=== PATIENT | male | born 1940 | race Caucasian/White ===

== ENCOUNTER 2021-11-21 11:23 | Inpatient (IN) | payer MEDICARE, OTHER, SELFPAY ==
--- NOTE | ~2021-11-21 | US_ITS ---
US renal BI 11/22/2021 09:04 Procedure: Realtime transabdominal ultrasound of the kidneys and bladder. Indication: Elevated liver enzymes Comparison: No prior studies for comparison. Findings: Renal echotexture is normal bilaterally without hydronephrosis, contour deforming mass or r enal calculus. There are bilateral renal cysts, largest in the right kidney measuring 1.8 cm. The rig ht kidney measures 1.8 cm and left kidney measures 1.2 cm. Bladder within normal limits. Impression: 1: Bilateral renal cysts. Reviewed, dictated and finalized at location A. UTER PROGRAMMER CHIEF Impression: 1: Bilateral renal cysts.
--- NOTE | ~2021-11-21 | US_ITS ---
US abdomen limited INDICATION: Elevated liver enzymes. PROCEDURE: Realtime right upper abdominal ultrasound. COMPARISON: No prior studies for comparison. FINDINGS: The pancreas is normal without focal mass or pancreatic ductal dilation. There is a 2 cm l iver cyst. Otherwise, liver echotexture is unremarkable. There is normal directional flow in the por echo vein. There are gallstones. No gallbladder wall thickening or pericholecystic fluid. Common bile duct ruthann ures 4 mm. No sonographic Walsh's sign. IMPRESSION: 1: Cholelithiasis. Reviewed, dictated and finalized at location A. AGE REPORTER IMPRESSION: 1: Cholelithiasis.
--- NOTE | ~2021-11-21 | CT_ITS ---
EXAMINATION: CT brain wo con DATE: 11/21/2021 12:57 INDICATION: Altered mental status TECHNIQUE: Computed tomography (CT) of the head was performed without intravenous contrast. The dose- length product was 681.00 mGy-cm. Automated exposure control and iterative reconstruction technique w ere employed. COMPARISON: None FINDINGS: Generalized atrophy. There are scattered mild periventricular and subcortical white matter changes, most likely related to small vessel ischemic disease (microangiopathy). There is a sellar ma ss measuring approximately 2 x 1.7 cm which may be represent a pituitary macroadenoma or craniopharyn gioma. There is intracranial atherosclerosis. No acute intracranial abnormality. No acute infarction or hemorrhage. Paranasal sinuses and mastoids are pneumatized. There are surgical changes of the orbi ts. Mild mucosal thickening of the maxillary sinuses. IMPRESSION: 1. No acute intracranial abnormality. 2: Pituitary sellar mass, suspicious for macroadenoma or craniopharyngioma. Consider correlation with MRI. 3: Chronic age-related findings. Reviewed, dictated and finalized at location A. MING PRESS OPERATOR IMPRESSION: 1. No acute intracranial abnormality. 2: Pituitary sellar mass, suspicious for macroadenoma or craniopharyngioma. Con auto club travel counselor correlation with MRI. 3: Chronic age-related findings.
[2021-11-21 11:28] VITALS: PULSE 61; RESP 17; TEMP 37.1; O2SAT 93
--- NOTE | 2021-11-21 11:36 | ECG_ITS ---
Measurements Intervals [place] Rate: 52 P: -14 TX: 174 QRS: 23 QRSD: 101 T: 37 QT: 453 QTc: 422 Interpretive Statements SINUS BRADYCARDIA EARLY PRECORDIAL R/S TRANSITION BASELINE ARTIFACT- I, II, III, AVR, AVL, AVF, V2-V6 BORDERLINE ECG Electronically Signed On 11-21-2021 14:14:50 [employer]RIGATOR SPRINKLING SYSTEM by Pedrito Rodriguez D.O.
[2021-11-21 11:55] LABS: Base Excess ABG -3.2 mEq/l (+/-2.0); Carboxyhemoglobin 0.4 % THb (0-2.0); Fractional Inspired Oxygen 36 %; HCO3 ABG 21.2 mEq/l (22.0-26.0); Methemoglobin ABG 0.1 %THb (0-1.5); Oxygen Content ABG 20.2 %vol (16.0-22.0); Oxygen Saturation ABG 99.8 % (95.0-100.0); Oxyhemoglobin 98.7 % THb (90.0-100.0); PCO2 ABG 36.3 mmHg (35.0-45.0); PO2 ABG 354.9 mmHg (80.0-100.0); Reduced Hemoglobin 0.8 %THb (0-5.0); Total Hemoglobin 13.9 g/dL (12.0-18.0); pH ABG 7.385 (7.350-7.450)
[2021-11-21 11:56] LABS: Device NASAL CANNULA; Modified Allen's Test Pass; Site Drawn RIGHT RADIAL
[2021-11-21 12:27] LABS: Add Urine Microscopic? YES; Appearance Urine Cloudy (Clear); Bacteria Urine Trace /hpf; Bilirubin Urine Negative (Negative); Blood Urine 1+ (Negative); Calcium Oxalate Crystals Urine Present /hpf; Color Urine Amber (Yellow); Glucose Urine UA Negative (Negative); Hyaline Casts Urine 30-49 /lpf; Ketones Urine Negative (Negative); Leukocyte Esterase Ur 3+ LEU/UL (Negative); Mucus Urine Few /lpf; Nitrate Urine Negative (Negative); Protein Urine 2+ mg/dL (Negative); RBC Urine 21-50 /hpf (0-2); Squamous Epithelial Cell Urine Few /hpf (Few); Urobilinogen Urine Negative mg/dL (<2.0); WBC Clumps Urine Present /HPF; WBC Urine >75 /hpf
[2021-11-21 12:35] LABS: Basophils Absolute Auto 0.1 K/mm3 (0.0-0.1); Basophils Percent Auto 0.4 % (0.2-1.2); Eosinophils Percent Auto 0.3 % (0-4.4); Hematocrit 39.5 % (42.0-52.0); Hemoglobin 12.1 g/dL (14.0-18.0); Immature Granulocyte Absolute 0.07 K/mm3 (0.00-0.031); Immature Granulocyte Percent A 0.6 % (0-0.5); Lymphocytes Percent Auto 11.1 % (18.3-44.2); Mean Corpuscular HGB Conc 30.6 g/dl (32-36); Mean Corpuscular Volume 107.6 fl (80-100); Mean Platelet Volume 11.3 fl (7.4-10.4); Monocytes Absolute Auto 1.6 K/mm3 (0.1-0.6); Neutrophils Absolute Auto 8.6 K/mm3 (1.3-6.7); Neutrophils Percent Auto 73.6 % (45.5-73.1); Platelet Count Result 249 k/mm3 (150-375); Red Blood Count 3.67 M/mm3 (4.6-6.20); Red Cell Distribution Width 12.7 % (11.5-14.5); White Blood Count 11.7 K/mm3 (4.5-10.0)
[2021-11-21 12:43] LABS: INR 1.2
[2021-11-21 12:44] LABS: Alanine Aminotransferase 80 U/L (4-50); Albumin Level 3.2 g/dL (3.5-5.1); Alkaline Phosphatase 144 U/L (38-126); Anion Gap 9 mmol/L (8-16); Aspartate Amino Transferase 70 U/L (17-59); Bilirubin,Total 0.6 mg/dL (0.2-1.3); Blood Urea Nitrogen 103 mg/dL (9-20); Calcium 9.5 mg/dL (8.4-10.2); Carbon Dioxide 28 mmol/L (22-30); Chloride 122 mmol/L (98-107); Estimated CRCL calculation 16 ml/min; Estimated Glomerular Filt Rate 19; Glucose 126 mg/dL (65-110); Partial Thromboplastin Time 28.6 SECONDS (22.3-36.8); Potassium 4.3 mmol/L (3.4-5.0); Sodium 159 mmol/L (137-145)
--- NOTE | 2021-11-21 12:51 | ED.GENADULT ---
HPI - General Adult General Chief complaint: Altered Mental Status Stated complaint: ams, low sp02 Time Seen by Provider: 11/21/21 12:26 Source: family and EMS Mode of arrival: EMS Limitations: dementia History of Present Illness HPI narrative: Patient is a 81-year-old male brought in from senior living due to low blood pressure and low oxygen saturation according to EMS. Daughter is at bedside who is power of assistant prosecuting attorney, states that the senior living called her and states that they are sending her dad to the emergency room due to his blood pressure being low. Patient is alert and oriented x1 which is his baseline according to daughter. Patient has progressive dementia and over the past 3 weeks has gotten worse per daughter. Patient was recently admitted at another hospital for the same complaint. Related Data Allergies Allergy/AdvReac Type Severity Reaction Status Date / Time No Known Allergies Allergy Verified 11/21/21 11:45 Review of Systems Review of Systems: ROS unobtainable: Yes other (Dementia) PMFSH Comments Past medical history: Dementia Family history: Unknown Social history: Lives at a senior living, unknown if patient ever smoked Exam Const: General: cooperative, healthy appearing, comfortable, no acute distress, well developed, alert and awake; No confusion Orientation/consciousness: oriented to person, oriented to place, oriented to time, patient oriented x3 and No confusion Limitations: other limitations (Dementia) Other: Somnolent but easily arousable to voice, frail HENMT: Head: normal to inspection Ears: hearing grossly normal bilaterally, TM normal on the right and TM normal on the left General nose exam: Normal external nose present, Normal nares present and No nasal discharge present Face and sinus: normal facial exam Mouth: Yes Normal oral and palatal mucosa present, Yes lip normal, Yes tongue normal and Yes oropharynx normal Throat: posterior oropharynx normal, tonsils normal and uvula midline Eyes: General: appearance normal, both eyes and all related structures Pupils: Equal, round and reactive pupils present EOM: EOMs intact bilaterally Neck: Neck: normal visual inspection and no lymphadenopathy Resp: Effort & Inspection: normal respiratory effort, able to speak in complete sentences, no respiratory distress and not tachypneic Auscultation: clear to auscultation bilaterally, no crackles, no rales, no rhonchi and no wheezes Cardio: Rate: regular rate Rhythm: regular rhythm GI: Inspection: normal to inspection GI Palp: No abdominal tenderness, Yes Soft to palpation, No Tenderness to palpation present (GI), No Guarding due to palpation present (GI), No Rigid due to palpation and No Rebound tenderness present Auscultation: normal bowel sounds Skin: General skin exam: normal color, no rashes or lesions noted, elasticity normal and turgor normal Neuro: General: oriented to person, tone normal, moves all extremities, Normal light touch and pain sensation, no meningeal signs and no focal motor deficits Cranial nerves: Yes Equal, round and reactive pupils present Speech: No Abnormal speech present Sensory Exam: No Sensory deficit (Neuro) Extrem: General: normal to inspection, full ROM and capillary refill normal Psych: Appearance: grossly normal and well kempt Attitude: cooperative Judgement: Good judgement present (Psych) Course Vital Signs Vital signs: Vital Signs Temperature 37.1 C 11/21/21 11:28 Pulse Rate 61 11/21/21 11:28 Respiratory Rate 17 11/21/21 11:28 Pulse Oximetry 93 11/21/21 11:28 Temperature 37.1 C 11/21/21 11:28 Pulse Rate 61 11/21/21 11:28 Respiratory Rate 17 11/21/21 11:28 Pulse Oximetry 93 11/21/21 11:28 Medical Decision Making MDM Narrative Medical decision making narrative: Patient has a living will according to daughter and he is a DNR. Daughter is also healthcare power of assistant prosecuting attorney. Vital Signs Vital Signs: Vital Signs Tempera
[2021-11-21 13:19] LABS: Troponin I 0.029 ng/mL (0.000-0.034)
[2021-11-21] MEDS: SODIUM CHLORIDE 0.9% IV 1,000 ML 999 ML IV CONT (15:42)
[2021-11-21] MEDS: SODIUM CHLORIDE 0.9% IV 1,000 ML 200 ML IV CONT (15:43)
[2021-11-21 15:48] VITALS: BP 122/54; PULSE 50; RESP 16; O2SAT 100
[2021-11-21] MEDS: LACTATED RINGERS 1,000 ML 100 ML IV CONT (15:48)
[2021-11-21 17:50] VITALS: BP 127/77; PULSE 54; RESP 18; O2SAT 100
[2021-11-21 17:55] VITALS: O2SAT 100
--- NOTE | 2021-11-21 18:01 | PM.IMHP ---
H&P: HPI History of Present Illness Date/Time: 11/21/21 18:01 this is a 81-year-old male patient who has a history of dementia. He is from [facility]. The patient was not able to give me any information so I had to call his daughter and obtained information. The patient was brought to the hospital due to low blood pressure and low oxygen saturation according to EMS. The daughter initially was at the bedside and then left and went home by time I saw the patient. I did call the daughter when she went home for further information. The patient has progressively gotten worse with his dementia over the last 3 weeks. The patient was recently discharged from another hospital. White count is 11.7. H&H is 11.1 and 39.5. Sodium level is 159. Chloride 122. BUN 103 and creatinine 3.2. According to the daughter the patient has never had any kidney dysfunction. Glucose 126 and GFR is 19. AST 70 ALT is 80. Albumin is 3.2 and protein is 6.0. The patient was also found have a UTI. According to the daughter the patient used to drink heavily prior to his last hospitalization. She stated that the patient drink up to 6 beers a day. She stated that he has not drink for approximately 3-4 weeks. The patient was given IV fluids and Rocephin in the emergency room. The patient is being admitted to observation status on the date of service of 11/21/2021. Chief Complaint: Confusion Review of Systems Review of Systems: ROS unobtainable: Yes unobtainable due to mental status PMFSH Past Medical History Medical History (Updated 11/21/21 @ 20:44 by Kaleigh Bee NP) Dementia Glaucoma Hyperlipidemia Hypertension Surgical History Surgical History (Updated 11/21/21 @ 20:43 by Kaleigh Bee NP) H/O eye surgery Family History Family History (Updated 11/21/21 @ 20:45 by Kaleigh Bee NP) Mother Diabetes mellitus Father Lung cancer Social History Social History (Updated 11/21/21 @ 20:55 by Kaleigh Bee NP) Social History: The patient has 2 children. Prior to his last hospitalization approximately a month ago the patient was drinking anywhere from 4-6 beers a day according to his daughter. The patient is an ex smoker. The patient is a . The patient is retired from a warehouse. His daughter Mimi is the durable power trial attorney for healthcare. Code status DNR Alcohol intake: unknown Substance use: unknown Spiritual care concerns: No Meds Home Medications and Allergies Home Medications Medication Instructions Recorded Confirmed Type atorvastatin 40 mg PO DAILY 11/21/21 11/21/21 History brimonidine [Alphagan P] 2 drp EACH EYE BID 11/21/21 11/21/21 History bupropion HCl 150 mg PO DAILY 11/21/21 11/21/21 History donepezil 5 mg PO HS 11/21/21 11/21/21 History dorzolamide-timolol 2 drp EACH EYE BID 11/21/21 11/21/21 History folic acid 1 mg PO DAILY 11/21/21 11/21/21 History netarsudil [Rhopressa] 2 drp EACH EYE HS 11/21/21 11/21/21 History pregabalin 50 mg PO BID 11/21/21 11/21/21 History sertraline 50 mg DAILY 11/21/21 11/21/21 History Allergies Allergy/AdvReac Type Severity Reaction Status Date / Time No Known Allergies Allergy Verified 11/21/21 11:45 Vital Signs Vital Signs - 24 hr 11/21/21 11:28 11/21/21 15:48 11/21/21 17:50 Temperature 37.1 C Pulse Rate 61 50 L 54 L Respiratory Rate 17 16 18 Blood Pressure 122/54 L 127/77 Pulse Oximetry 93 100 100 11/21/21 17:55 Temperature Pulse Rate Respiratory Rate Blood Pressure Pulse Oximetry 100 Exam Const: General: cooperative, comfortable, no acute distress, well developed, alert, awake and tired appearing Nutritional Appearance: thin Orientation/consciousness: oriented to person Limitations: no limitations HENMT: Head: normal to inspection, No palpable skull fracture present, normocephalic and atraumatic Ears: hearing grossly normal bilaterally General nose exam: Normal external nose pres
[2021-11-21 18:35] VITALS: BP 139/98; PULSE 81; RESP 18; O2SAT 100
[2021-11-21 21:44] LABS: Anion Gap 6 mmol/L (8-16); Blood Urea Nitrogen 99 mg/dL (9-20); Calcium 9.1 mg/dL (8.4-10.2); Carbon Dioxide 23 mmol/L (22-30); Chloride 128 mmol/L (98-107); Estimated CRCL calculation 22 ml/min; Estimated Glomerular Filt Rate 26; Glucose 105 mg/dL (65-110); Potassium 4.1 mmol/L (3.4-5.0); Sodium 157 mmol/L (137-145)
[2021-11-21 22:00] VITALS: BP 150/65; PULSE 55; RESP 16; TEMP 35.3; O2SAT 100
[2021-11-21] MEDS: LORazepam INJ (*CRX) 2 MG/ML VIAL 0.5 MG IV PUSH (23:40)
[2021-11-22] VITALS (19 sets, daily range): BP systolic 96–126; BP diastolic 51–73; PULSE 56–80; RESP 12–16; TEMP 31.4–37.1; O2SAT 96–97
[2021-11-22 06:47] LABS: Basophils Percent Auto 0.4 % (0.2-1.2); Eosinophils Percent Auto 0.2 % (0-4.4); Hematocrit 40.8 % (42.0-52.0); Hemoglobin 12.2 g/dL (14.0-18.0); Immature Granulocyte Absolute 0.05 K/mm3 (0.00-0.031); Immature Granulocyte Percent A 0.5 % (0-0.5); Lymphocytes Absolute Auto 1.01 K/mm3 (0.9-3.2); Lymphocytes Percent Auto 9.9 % (18.3-44.2); Mean Corpuscular HGB Conc 29.9 g/dl (32-36); Mean Corpuscular Hemoglobin 32.8 pg (26-34); Mean Corpuscular Volume 109.7 fl (80-100); Mean Platelet Volume 11.8 fl (7.4-10.4); Monocytes Percent Auto 9.9 % (2.6-8.5); Neutrophils Absolute Auto 8.1 K/mm3 (1.3-6.7); Neutrophils Percent Auto 79.1 % (45.5-73.1); Platelet Count Result 205 k/mm3 (150-375); Red Blood Count 3.72 M/mm3 (4.6-6.20); Red Cell Distribution Width 12.7 % (11.5-14.5); White Blood Count 10.2 K/mm3 (4.5-10.0)
[2021-11-22 07:06] LABS: Lactic Acid Reflex 0.6 mmol/L (0.7-2.1)
[2021-11-22 07:18] LABS: Alanine Aminotransferase 77 U/L (4-50); Albumin Level 3.2 g/dL (3.5-5.1); Alkaline Phosphatase 154 U/L (38-126); Anion Gap 9 mmol/L (8-16); Aspartate Amino Transferase 61 U/L (17-59); Bilirubin,Total 0.4 mg/dL (0.2-1.3); Blood Urea Nitrogen 90 mg/dL (9-20); Calcium 9.4 mg/dL (8.4-10.2); Carbon Dioxide 24 mmol/L (22-30); Chloride 128 mmol/L (98-107); Estimated CRCL calculation 26 ml/min; Estimated Glomerular Filt Rate 32; Glucose 109 mg/dL (65-110); Lactate Dehydrogenase 508 U/L (313-618); Magnesium 3.1 mg/dL (1.6-2.3); Potassium 4.3 mmol/L (3.4-5.0); Sodium 161 mmol/L (137-145)
[2021-11-22 07:49] LABS: Hepatitis B Surface Antigen Negative (Negative)
[2021-11-22 07:55] LABS: HAV RESULT Negative (Negative); Hepatitis B Core IgM Result Negative (Negative)
[2021-11-22 08:05] LABS: Burr Cells 2+ (NORMAL); Platelet Estimate Adequate (Adequate)
[2021-11-22 08:06] LABS: Hepatitis C Virus Antibody Negative (Negative)
[2021-11-22] MEDS: DEXTROSE 5%/0.45% SOD CHL 1,000 ML 125 ML IV CONT ×3 (08:47→23:39)
[2021-11-22] MEDS: FOLIC ACID 1 MG TABLET PO (08:48)
[2021-11-22] MEDS: SERTRALINE HCL 50 MG TABLET BY MOUTH (08:48)
[2021-11-22] MEDS: PREGABALIN (*CRX) 50 MG CAPSULE PO (08:48)
[2021-11-22] MEDS: DORZOLAMIDE/TIMOLOL OPHTH SOL 10 ML BOTTLE 2 DROP EACH EYE ×2 (08:49→21:08)
[2021-11-22] MEDS: BRIMONIDINE TARTRATE 0.1% 5 ML OPHTH DROPS 2 DROP EACH EYE ×2 (08:49→21:07)
[2021-11-22 08:51] LABS: Thyroid Stimulating Hormone Reflex 0.971 uIU/mL (0.465-4.68)
[2021-11-22 12:21] LABS: Immature Reticulocyte Fraction 8.1 % (3.0-15.9); Reticulocyte Percent 1.09 % (0.7-4.3); Reticulocytes Absolute 0.03 B/L (32.2-175.7)
[2021-11-22 12:40] LABS: Anion Gap 6 mmol/L (8-16); Blood Urea Nitrogen 89 mg/dL (9-20); Calcium 8.7 mg/dL (8.4-10.2); Carbon Dioxide 24 mmol/L (22-30); Chloride 129 mmol/L (98-107); Estimated CRCL calculation 29 ml/min; Estimated Glomerular Filt Rate 37; Glucose 143 mg/dL (65-110); Sodium 159 mmol/L (137-145)
[2021-11-22 12:51] LABS: Iron 39 ug/dL (49-181)
--- NOTE | 2021-11-22 12:56 | PM.IMPN ---
Progress Note: A&P Assessment and Plan (1) Altered mental status: Qualifiers: Altered mental status type: unspecified Qualified Code(s): R41.82 - Altered mental status, unspecified Code(s): R41.82 - Altered mental status, unspecified Status: Acute Assessment and Plan: He has dementia of unknown etiology at baseline Altered mental status is likely due to metabolic encephalopathy due to hypernatremia and dehydration CT brain without acute findings Monitor as his sodium is slowly corrected (2) Acute hypernatremia: Code(s): E87.0 - Hyperosmolality and hypernatremia Status: Acute Assessment and Plan: Most likely due to decreased thirst as well as decreased free water losses caused by PO urea therapy Calculated free free water deficit is approximately 5 L (3) Hypothermia: Qualifiers: Encounter type: initial encounter Qualified Code(s): T68.XXXA - Hypothermia, initial encounter Code(s): T68.XXXA - Hypothermia, initial encounter Status: Acute Assessment and Plan: Likely related to his metabolic encephalopathy and decreased level of activity Obtain TSH and cortisol Warming blanket (4) Acute renal failure: Qualifiers: Acute renal failure type: unspecified Qualified Code(s): N17.9 - Acute kidney failure, unspecified Code(s): N17.9 - Acute kidney failure, unspecified Status: Acute Assessment and Plan: Baseline creatinine unknown Likely due to dehydration Renal ultrasound with bilateral cyst, largest 1.2 and 1.8 cm, and no hydronephrosis (5) UTI (urinary tract infection): Qualifiers: Urinary tract infection type: site unspecified Hematuria presence: without hematuria Qualified Code(s): N39.0 - Urinary tract infection, site not specified Code(s): N39.0 - Urinary tract infection, site not specified Status: Acute Assessment and Plan: Urinary tract infection clinically unlikely Ceftriaxone initiated 11/21 Discontinue if urine cultures negative (6) Elevated liver enzymes: Code(s): R74.8 - Abnormal levels of other serum enzymes Status: Acute Assessment and Plan: Prior history of alcohol and atorvastatin use Viral hepatitis panel negative Abdominal ultrasound with cholelithiasis lithiasis and no hepatic abnormality Follow-up with hydration and warming (7) Glaucoma: Qualifiers: Glaucoma type: unspecified Laterality: unspecified laterality Qualified Code(s): H40.9 - Unspecified glaucoma Code(s): H40.9 - Unspecified glaucoma Status: Chronic Assessment and Plan: Continue with home eye drops. 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 Was less agitated at [facility]. Found to be hypernatremic. Was on urea presumably to treat hyponatremia. 11/22: Noted to be hypothermic today. Warming
[2021-11-22 13:01] LABS: Percent Iron Saturation 20 % (20-50)
[2021-11-22 13:23] LABS: Thyroid Stimulating Hormone Reflex 0.725 uIU/mL (0.465-4.68)
[2021-11-22 13:53] LABS: Folic Acid > 20.0 ng/mL (2.76->20); Vitamin B12 > 1000.0 pg/mL (239-931)
[2021-11-22 16:58] LABS: Urine Cotinine NEGATIVE
[2021-11-22 16:59] LABS: Sodium Urine Random 28 meq/L
[2021-11-22 17:07] LABS: Eosinophil Urine None Seen % (None Seen)
[2021-11-22 17:10] LABS: Total Protein Urine Random 17 mg/dL
[2021-11-22] MEDS: DONEPEZIL HCL 5 MG TABLET PO (21:08)
[2021-11-22] MEDS: LATANOPROST 0.005% OP SOLN 2.5 ML BTL 1 DROP EACH EYE (21:08)
[2021-11-23 06:00] VITALS: BP 111/47; PULSE 45; RESP 20; TEMP 36.4; O2SAT 100
[2021-11-23 06:06] LABS: Hematocrit 32.5 % (42.0-52.0); Hemoglobin 9.7 g/dL (14.0-18.0); Mean Corpuscular HGB Conc 29.8 g/dl (32-36); Mean Corpuscular Hemoglobin 32.3 pg (26-34); Mean Corpuscular Volume 108.3 fl (80-100); Mean Platelet Volume 12.2 fl (7.4-10.4); Platelet Count Result 188 k/mm3 (150-375); Red Cell Distribution Width 12.7 % (11.5-14.5); White Blood Count 9.4 K/mm3 (4.5-10.0)
[2021-11-23 06:29] LABS: Alanine Aminotransferase 47 U/L (4-50); Albumin Level 2.5 g/dL (3.5-5.1); Alkaline Phosphatase 115 U/L (38-126); Anion Gap 7 mmol/L (8-16); Aspartate Amino Transferase 36 U/L (17-59); Bilirubin,Total 0.3 mg/dL (0.2-1.3); Blood Urea Nitrogen 69 mg/dL (9-20); Calcium 8.8 mg/dL (8.4-10.2); Carbon Dioxide 21 mmol/L (22-30); Chloride 129 mmol/L (98-107); Estimated CRCL calculation 36 ml/min; Estimated Glomerular Filt Rate 49; Glucose 117 mg/dL (65-110); Phosphorus 3.7 mg/dL (2.5-4.5); Potassium 3.5 mmol/L (3.4-5.0); Sodium 157 mmol/L (137-145)
[2021-11-23] MEDS: ATORVASTATIN 40 MG TABLET PO (09:18)
[2021-11-23] MEDS: THIAMINE HCL 50 MG TABLET BY MOUTH (09:18)
[2021-11-23] MEDS: FOLIC ACID 1 MG TABLET PO (09:18)
[2021-11-23] MEDS: SERTRALINE HCL 50 MG TABLET BY MOUTH (09:18)
[2021-11-23] MEDS: buPROPion HCL XL (24 HR) 150 MG TABCR PO (09:18)
[2021-11-23] MEDS: PREGABALIN (*CRX) 50 MG CAPSULE PO (09:18)
[2021-11-23] MEDS: DORZOLAMIDE/TIMOLOL OPHTH SOL 10 ML BOTTLE 2 DROP EACH EYE ×2 (09:20→20:41)
[2021-11-23] MEDS: BRIMONIDINE TARTRATE 0.1% 5 ML OPHTH DROPS 2 DROP EACH EYE ×2 (09:21→20:42)
[2021-11-23] MEDS: DEXTROSE 5%/0.45% SOD CHL 1,000 ML 125 ML IV CONT (09:23)
[2021-11-23 12:40] LABS: Sodium 154 mmol/L (137-145)
[2021-11-23 13:05] VITALS: BP 98/62; PULSE 84; RESP 16; TEMP 34.3; O2SAT 95
[2021-11-23 13:20] VITALS: BP 98/53; PULSE 52; RESP 16; TEMP 33.6; O2SAT 97
[2021-11-23 14:51] VITALS: BMI 21.2
--- NOTE | 2021-11-23 15:27 | PM.IMPN ---
Progress Note: A&P Assessment and Plan (1) Altered mental status: Qualifiers: Altered mental status type: unspecified Qualified Code(s): R41.82 - Altered mental status, unspecified Code(s): R41.82 - Altered mental status, unspecified Status: Acute Assessment and Plan: Altered mental status is likely due to metabolic encephalopathy due to hypernatremia and dehydration CT brain without acute findings Monitor as his sodium is slowly corrected Given patient's progressive decline, family has requested to proceed with hospice care in alignment with the patients wishes as a DNR. Care coordination informed and referral has been placed. Plannin for family meeting today with plans for hopeful discharge home with hospice tomorrow. (2) Acute hypernatremia: Code(s): E87.0 - Hyperosmolality and hypernatremia Status: Acute Assessment and Plan: Most likely due to decreased thirst as well as decreased free water losses caused by PO urea therapy Calculated free free water deficit is approximately 5 L Continue gentle IV fluids D5/0.45NS. Decrease to 75 ml/hr Sodium improved to 154 today. Recheck this evening to ensure appropriate rate of correction. (3) Hypothermia: Qualifiers: Encounter type: initial encounter Qualified Code(s): T68.XXXA - Hypothermia, initial encounter Code(s): T68.XXXA - Hypothermia, initial encounter Status: Acute Assessment and Plan: Likely related to his metabolic encephalopathy and decreased level of activity TSH and cortisol within normal limits Continue Jes hugger Monitor rectal temp (4) Acute renal failure: Qualifiers: Acute renal failure type: unspecified Qualified Code(s): N17.9 - Acute kidney failure, unspecified Code(s): N17.9 - Acute kidney failure, unspecified Status: Acute Assessment and Plan: Baseline creatinine unknown Likely due to dehydration Renal ultrasound with bilateral cyst, largest 1.2 and 1.8 cm, and no hydronephrosis Creatinine improved to 1.4 today (5) UTI (urinary tract infection): Qualifiers: Urinary tract infection type: site unspecified Hematuria presence: without hematuria Qualified Code(s): N39.0 - Urinary tract infection, site not specified Code(s): N39.0 - Urinary tract infection, site not specified Status: Acute Assessment and Plan: Urinary tract infection clinically unlikely started IV Rocephin urine culture was negative, therefore Rocephin will be discontinued (6) Elevated liver enzymes: Code(s): R74.8 - Abnormal levels of other serum enzymes Status: Acute Assessment and Plan: Prior history of alcohol and atorvastatin use Viral hepatitis panel negative Abdominal ultrasound with cholelithiasis and no hepatic abnormality Normalized today adequate hydration and warming (7) Dementia: Qualifiers: Dementia type: unspecified type Dementia behavioral disturbance: with behavioral disturbance Qualified Code(s): F03.91 - Unspecified dementia with behavioral disturbance Code(s): F03.90 - Unspecified dementia without behavioral disturbance Status: Chronic Assessment and Plan: Continue with Aricept (8) Hypertension: Qualifiers: Hypertension type: unspecified Qualified Code(s): I10 - Essential (primary) hypertension Code(s): I10 - Essential (primary) hypertension Status: Chronic Assessment and Plan: blood pressures are soft he is on any antihypertensives monitor blood pressures continue IV fluids DNR status reaffirmed. POA declines central lines or pressors should this become necessary (9) Pituitary neoplasm: Code(s): D49.7 - Neoplasm of unspecified behavior of endocrine glands and other parts of nervous system Status: Acute Assessment and Plan: This is chronic and likely not caus
[2021-11-23 17:22] VITALS: TEMP 36.4
[2021-11-23] MEDS: DEXTROSE 5%/0.45% SOD CHL 1,000 ML 75 ML IV CONT (18:07)
[2021-11-23 19:20] VITALS: BP 103/44; PULSE 47; RESP 16; TEMP 35.9; O2SAT 98
[2021-11-23 20:00] VITALS: PULSE 47; RESP 16; O2SAT 98
[2021-11-23 20:17] LABS: Glucose Point of Care 86 mg/dl (65-105)
[2021-11-23] MEDS: DONEPEZIL HCL 5 MG TABLET PO (20:40)
[2021-11-23] MEDS: LATANOPROST 0.005% OP SOLN 2.5 ML BTL 1 DROP EACH EYE (20:40)
[2021-11-23 20:51] LABS: Sodium 155 mmol/L (137-145)
[2021-11-24] VITALS (8 sets, daily range): BP systolic 97–149; BP diastolic 45–89; PULSE 42–60; RESP 12–20; TEMP 33.4–36.6; O2SAT 95–98
[2021-11-24 06:07] LABS: Hematocrit 32.1 % (42.0-52.0); Hemoglobin 9.6 g/dL (14.0-18.0); Mean Corpuscular HGB Conc 29.9 g/dl (32-36); Mean Corpuscular Hemoglobin 32.1 pg (26-34); Mean Corpuscular Volume 107.4 fl (80-100); Mean Platelet Volume 12.8 fl (7.4-10.4); Platelet Count Result 170 k/mm3 (150-375); Red Blood Count 2.99 M/mm3 (4.6-6.20); Red Cell Distribution Width 12.7 % (11.5-14.5); White Blood Count 8.1 K/mm3 (4.5-10.0)
[2021-11-24 06:30] LABS: Anion Gap 5 mmol/L (8-16); Blood Urea Nitrogen 48 mg/dL (9-20); Carbon Dioxide 22 mmol/L (22-30); Chloride 129 mmol/L (98-107); Estimated CRCL calculation 46 ml/min; Estimated Glomerular Filt Rate > 60; Glucose 101 mg/dL (65-110); Potassium 3.4 mmol/L (3.4-5.0); Sodium 156 mmol/L (137-145)
--- NOTE | 2021-11-24 06:35 | PC.NURSE ---
Rectal temp 93.4 bear hugger applied.
[2021-11-24] MEDS: ATORVASTATIN 40 MG TABLET PO (09:25)
[2021-11-24] MEDS: BRIMONIDINE TARTRATE 0.1% 5 ML OPHTH DROPS 2 DROP EACH EYE ×2 (09:25→20:05)
[2021-11-24] MEDS: FOLIC ACID 1 MG TABLET PO (09:25)
[2021-11-24] MEDS: THIAMINE HCL 50 MG TABLET BY MOUTH (09:25)
[2021-11-24] MEDS: buPROPion HCL XL (24 HR) 150 MG TABCR PO (09:25)
[2021-11-24] MEDS: DORZOLAMIDE/TIMOLOL OPHTH SOL 10 ML BOTTLE 2 DROP EACH EYE ×2 (09:26→20:08)
[2021-11-24] MEDS: DEXTROSE 5%/0.45% SOD CHL 1,000 ML 75 ML IV CONT (09:29)
--- NOTE | 2021-11-24 11:12 | PM.DS ---
DS: Admitting Diagnosis Discharge Date 11/24/2021 Admitting Diagnosis Hypotension DS: Discharge Diagnosis Discharge Diagnosis (1) Altered mental status: Qualifiers: Altered mental status type: unspecified Qualified Code(s): R41.82 - Altered mental status, unspecified Code(s): R41.82 - Altered mental status, unspecified Status: Acute Assessment and Plan: Altered mental status is likely due to metabolic encephalopathy due to hypernatremia and dehydration CT brain without acute findings Given patient's progressive decline, family requested to proceed with hospice care in alignment with the patients wishes as a DNR. Family was viewed has hospice on 11/24/2019 to in the morning and signed consents. Patient is being discharged home with hospice services (2) Acute hypernatremia: Code(s): E87.0 - Hyperosmolality and hypernatremia Status: Acute Assessment and Plan: Most likely due to decreased thirst as well as decreased free water losses caused by PO urea therapy. He was hydrated with IV fluids. Discontinued routine sodium monitoring upon initiation of comfort care after family had signed hospice consent. (3) Hypothermia: Qualifiers: Encounter type: initial encounter Qualified Code(s): T68.XXXA - Hypothermia, initial encounter Code(s): T68.XXXA - Hypothermia, initial encounter Status: Acute Assessment and Plan: Likely related to his metabolic encephalopathy and decreased level of activity. TSH and cortisol within normal limits. He was warmed with use of the Jes Hugger and had episodes of improvement but could not maintain his body temperature. Routine temperature monitoring discontinued with comfort care. (4) Acute renal failure: Qualifiers: Acute renal failure type: unspecified Qualified Code(s): N17.9 - Acute kidney failure, unspecified Code(s): N17.9 - Acute kidney failure, unspecified Status: Acute Assessment and Plan: Baseline creatinine unknown. Likely due to dehydration. Improved. (5) UTI (urinary tract infection): Qualifiers: Hematuria presence: without hematuria Urinary tract infection type: site unspecified Qualified Code(s): N39.0 - Urinary tract infection, site not specified Code(s): N39.0 - Urinary tract infection, site not specified Status: Acute Assessment and Plan: Ruled out. Urine culture was negative, therefore Rocephin will be discontinued (6) Elevated liver enzymes: Code(s): R74.8 - Abnormal levels of other serum enzymes Status: Acute Assessment and Plan: Prior history of alcohol and atorvastatin use. Viral hepatitis panel negative. Abdominal ultrasound with cholelithiasis and no hepatic abnormality. Normalized following hydration and warming (7) Dementia: Qualifiers: Dementia behavioral disturbance: with behavioral disturbance Dementia type: unspecified type Qualified Code(s): F03.91 - Unspecified dementia with behavioral disturbance Code(s): F03.90 - Unspecified dementia without behavioral disturbance Status: Chronic Assessment and Plan: With progressive decline (8) Hypertension: Qualifiers: Hypertension type: unspecified Qualified Code(s): I10 - Essential (primary) hypertension Code(s): I10 - Essential (primary) hypertension Status: Chronic Assessment and Plan: Blood pressure were soft. He is on not on any home antihypertensives. He was rehydrated with IV fluids. Comfort care measures initiated. (9) Pituitary neoplasm: Code(s): D49.7 - Neoplasm of unspecified behavior of endocrine glands and other parts of nervous system Status: Acute Assessment and Plan: This is chronic and likely not causing any of his current issues DS: Summary Hospital Course Hospital Course: Date of admission: 11/21/2021 Date of dischar
[2021-11-24 15:52] LABS: IFOB Positive Control Positive; Immunochemical Fecal Occult Bl Negative (N)
--- NOTE | 2021-11-24 15:59 | PC.NURSE ---
On 11/24/21, the student, Destini Mcfarlane, provided care and completed [facility] documentation on this patient. I have reviewed the student's documentation and agree with the findings.
[2021-11-24 19:19] LABS: Osmolality, Urine 556 mOsm/kg (50-1200)
[2021-11-24] MEDS: DONEPEZIL HCL 5 MG TABLET PO (20:05)
[2021-11-24] MEDS: LATANOPROST 0.005% OP SOLN 2.5 ML BTL 1 DROP EACH EYE (20:08)
== END 2021-11-24 21:45 | disposition hospice, home (50) | DRG 640 ==
LOC: ANHED 15:35 → ANH3MED 17:55
PROVIDERS: Nurse Practitioner; Admitting Provider Internal Medicine; Emergency Provider Emergency Medicine; PCP Family Medicine; Visit Provider Physician Assistant
DX: E87.0 Hyperosmolality and hypernatremia (principal); G93.41 Metabolic encephalopathy; N17.9 Acute kidney failure, unspecified; F03.91 Unspecified dementia, unspecified severity, with behavioral disturbance; E86.0 Dehydration; R74.8 Abnormal levels of other serum enzymes; I10 Essential (primary) hypertension; D49.7 Neoplasm of unspecified behavior of endocrine glands and other parts of nervous system; E78.5 Hyperlipidemia, unspecified; F10.10 Alcohol abuse, uncomplicated; H40.9 Unspecified glaucoma; Z66 Do not resuscitate; R68.0 Hypothermia, not associated with low environmental temperature; Z87.891 Personal history of nicotine dependence
CPT/HCPCS: 36415; 36600; 51701; 70450; 76705; 76775; 80048; 80053; 80074; 80307; 81001; 81050; 82274; 82375; 82533; 82607; 82728; 82746; 82805; 82948; 83050; 83540; 83550; 83605; 83615; 83735; 83935; 84100; 84156; 84295; 84300; 84443; 84484; 85025; 85027; 85046; 85610; 85730; 85999; 87040; 87086; 93005; 96361; 96365; 96366; 96375; 99285; A9270; G0378; J0696; J2060; J7030; J7120